=== PATIENT | male | born 1985 ===

== ENCOUNTER 2022-10-23 13:43 | Inpatient (IN) ==
[2022-10-23] MEDS ORDERED: ONDANSETRON 4 MG/2 ML VIAL IV STA (14:53)
[2022-10-23] MEDS ORDERED: MORPHINE 2 MG/1 ML SYRINGE IV STA (14:53)
[2022-10-23] MEDS ORDERED: cefTRIAXone 1,000 MG in SODIUM CHLORIDE 0.9% 100 ML IV STA (14:53)
[2022-10-23] MEDS ORDERED: LIDOCAINE 1% 20 ML VIAL INFILTRAT STA (15:06)
[2022-10-23 16:00] LABS: Basophils # 0.1 10*3/uL (0.0-0.2); Basophils % 0.4 % (0.0-0.8); Eosinophils # 0.2 10*3/uL (0.0-0.87); Eosinophils % 0.9 % (0.00-10.9); Hematocrit 37.1 VOL% (42.0-52.0); Hemoglobin 12.5 GM/DL (14.0-18.0); Immature Granulocytes % 1.8 %; Immature Granulocytes Absolute 0.35 #; Lymphocytes # 1.8 10*3/uL (1.4-4.0); Lymphocytes % 9.3 % (21.2-54.2); Mean Corpuscular HGB Conc 33.7 GM/DL (32-36); Mean Corpuscular Volume 99.7 FL (87-102); Mean Platelet Volume 9.7 FL (9.6-12.0); Monocytes # 2.4 10*3/uL (0.11-0.8); Monocytes % 12.7 % (1.7-12.7); Neutrophils % 74.9 % (38.7-73.9); Platelet Count 255 T/CUMM (130-400); Red Blood Count 3.72 MC/CUMM (3.8-5.5); Red Cell Distribution Width 15.9 % (9.3-17.3); White Blood Count 19.2 T/CUMM (4-12)
[2022-10-23 16:11] LABS: INR 1.8; PT Patient Result 19.5 SECS (10.1-12.1); Partial Thromboplastin Time 44.9 SECS (23.7-32.9)
[2022-10-23 16:26] LABS: Glucose,Peritoneal Fluid 81 MG/DL; LDH,Peritoneal Fluid 64 U/L; Total Protein,Peritoneal Fluid < 1.0 G/DL
[2022-10-23 16:59] LABS: Neutrophils,Peritoneal Fluid 27 %
[2022-10-23 17:00] LABS: RBC,Peritoneal Fluid 2236 T/CUMM
[2022-10-23 17:14] LABS: Albumin 1.5 G/DL (3.4-5.0); Bilirubin,Direct 18.59 MG/DL (0.0-0.20); Bilirubin,Indirect 3.5 MG/DL (0.0-1.0); Total Protein 6.5 G/DL (6.4-8.2)
[2022-10-23 17:30] LABS: Bilirubin,Total 22.1 MG/DL (0.20-1.00)
[2022-10-23] MEDS ORDERED: MORPHINE 2 MG/1 ML SYRINGE IV PRN (17:42)
[2022-10-23] MEDS ORDERED: ONDANSETRON 4 MG/2 ML VIAL IV PRN (17:42)
[2022-10-23 17:55] LABS: Bacteria,Urine Occasional /HPF (Few); Mucus,Urine Occasional /LPF (Occasional); Squamous Epithelial Cell,Urine Occasional /HPF (0-10)
[2022-10-23 17:57] LABS: Urine Appearance Clear (Clear)
[2022-10-23 17:58] LABS: Bilirubin,Urine Large mg/dL (Negative); Blood, Urine Trace mg/dL (Negative); Glucose,Urine (UA) 100 mg/dL (Negative); Ketones,Urine 15 mg/dL (Negative); Nitrite,Urine Negative (Negative); Protein,Urine 100 mg/dL (Negative); Urine Specific Gravity 1.025 (1.001-1.035)
[2022-10-23 17:59] LABS: Urine Color Brown (Yellow)
[2022-10-23 18:13] LABS: Thyroid Stimulating Hormone 1.23 uIU/ml (0.358-3.74)
[2022-10-23 18:47] LABS: Hepatitis B Core IgM Quant 0.07 Index; Hepatitis B Surface Ag Quant < 0.10 Index; Hepatitis B Surface Ag Result Non-Reactive (NonReactive); Hepatitis C Virus Ab Quant 0.06 Index; Hepatitis C Virus Ab Result Non-Reactive (NonReactive)
[2022-10-23] MEDS ORDERED: hydrALAZINE 20 MG/1 ML VIAL IV PRN (19:39)
[2022-10-23] MEDS ORDERED: LORazepam 2 MG/1 ML VIAL IV PRN (19:39)
[2022-10-23 19:49] LABS: % Iron Saturation 64.8 % (18-50)
[2022-10-23 19:58] LABS: Folate 9.64 NG/ML (5.38-24.0); Vitamin B12 > 2000 PG/ML (211-911)
[2022-10-23] MEDS: INSULIN REGULAR 100 UNIT/ML SUBCUT SCH (21:06)
[2022-10-23] MEDS ORDERED: GLUCAGON 1 MG VIAL IM PRN (21:18)
[2022-10-23] MEDS ORDERED: DEXTROSE 10% 250 ML BAG IV PRN (21:18)
[2022-10-23] MEDS ORDERED: DEXTROSE 50% 25 GM/50 ML SYRINGE IV PRN ×2 (21:23→21:44)
[2022-10-23] MEDS: DEXTROSE 50% 25 GM/50 ML SYRINGE IV PRN ×2 (21:30→21:34)
[2022-10-23] MEDS ORDERED: DEXTROSE 50% 25 GM/50 ML SYRINGE IV ONE (21:30)
[2022-10-24 04:19] LABS: Basophils # 0.1 10*3/uL (0.0-0.2); Basophils % 0.5 % (0.0-0.8); Eosinophils # 0.3 10*3/uL (0.0-0.87); Eosinophils % 1.3 % (0.00-10.9); Hematocrit 39.5 VOL% (42.0-52.0); Hemoglobin 13.6 GM/DL (14.0-18.0); Immature Granulocytes % 1.9 %; Immature Granulocytes Absolute 0.39 #; Lymphocytes # 2.2 10*3/uL (1.4-4.0); Mean Corpuscular HGB Conc 34.4 GM/DL (32-36); Mean Corpuscular Volume 98.3 FL (87-102); Mean Platelet Volume 10.3 FL (9.6-12.0); Monocytes # 2.8 10*3/uL (0.11-0.8); Monocytes % 13.5 % (1.7-12.7); Neutrophils % 71.8 % (38.7-73.9); Platelet Count 322 T/CUMM (130-400); Red Blood Count 4.02 MC/CUMM (3.8-5.5); Red Cell Distribution Width 15.9 % (9.3-17.3); White Blood Count 20.4 T/CUMM (4-12)
[2022-10-24 04:40] LABS: Albumin 1.6 G/DL (3.4-5.0); Osmolality,Calculated 267.5 MOS/KG (273-304); Potassium 3.9 MMOL/L (3.5-5.1); Risk Ratio 10.62; Total Protein 6.6 G/DL (6.4-8.2); VLDL Cholesterol 75.4 MG/DL
[2022-10-24 04:42] LABS: Bilirubin,Total 24.6 MG/DL (0.20-1.00)
[2022-10-24 04:52] LABS: Band Neutrophils 2 % (0-10); Eosinophils 2 % (0-10); Lymphocytes 10 % (20-55); Metamyelocytes 1 %; Total Cells Counted 100
[2022-10-24 04:53] LABS: Macrocytosis Slight
[2022-10-24] MEDS ORDERED: DEXTROSE 10% 1,000 ML IV SCH (08:30)
[2022-10-24] MEDS ORDERED: cefTRIAXone 1,000 MG in SODIUM CHLORIDE 0.9% 100 ML IV SCH (09:00)
[2022-10-24] MEDS ORDERED: DEXTROSE 10% 250 ML IV SCH (09:00)
[2022-10-24] MEDS: INSULIN REGULAR 100 UNIT/ML SUBCUT SCH ×4 (10:02→20:05)
[2022-10-24] MEDS: MULTIVITAMIN (CENTRUM) TABLET PO SCH (10:28)
[2022-10-24] MEDS: FOLIC ACID 1 MG TABLET PO SCH (10:29)
[2022-10-24] MEDS: PANTOPRAZOLE 40 MG TABLET PO SCH (10:29)
[2022-10-24] MEDS: THIAMINE 100 MG TABLET PO SCH (10:29)
[2022-10-24] MEDS: DEXTROSE 10% 500 ML IV SCH ×3 (11:22→22:15)
[2022-10-25] MEDS: DEXTROSE 10% 500 ML IV SCH ×4 (03:00→14:41)
[2022-10-25 05:08] LABS: Basophils # 0.1 10*3/uL (0.0-0.2); Basophils % 0.6 % (0.0-0.8); Eosinophils # 0.2 10*3/uL (0.0-0.87); Eosinophils % 1.6 % (0.00-10.9); Hematocrit 32.2 VOL% (42.0-52.0); Hemoglobin 11.1 GM/DL (14.0-18.0); Immature Granulocytes % 1.9 %; Immature Granulocytes Absolute 0.25 #; Lymphocytes # 1.4 10*3/uL (1.4-4.0); Lymphocytes % 10.7 % (21.2-54.2); Mean Corpuscular HGB Conc 34.5 GM/DL (32-36); Mean Corpuscular Volume 98.8 FL (87-102); Mean Platelet Volume 9.5 FL (9.6-12.0); Monocytes # 2.2 10*3/uL (0.11-0.8); Monocytes % 16.2 % (1.7-12.7); Platelet Count 169 T/CUMM (130-400); Red Blood Count 3.26 MC/CUMM (3.8-5.5); Red Cell Distribution Width 15.3 % (9.3-17.3); White Blood Count 13.4 T/CUMM (4-12)
[2022-10-25 05:33] LABS: Albumin 1.2 G/DL (3.4-5.0); Calcium 7.4 MG/DL (8.5-10.1); Osmolality,Calculated 267.1 MOS/KG (273-304); Potassium 3.5 MMOL/L (3.5-5.1); Total Protein 5.2 G/DL (6.4-8.2)
[2022-10-25 05:35] LABS: Bilirubin,Total 19.2 MG/DL (0.20-1.00)
[2022-10-25 05:50] LABS: Band Neutrophils 17 % (0-10); Lymphocytes 9 % (20-55); Nucleated Red Blood Cells 1 /100 WBC (0-5); Platelet Estimate Normal; Total Cells Counted 100
[2022-10-25 05:51] LABS: Anisocytosis 1+; Burr Cells 1+; Macrocytosis Slight
[2022-10-25] MEDS: INSULIN REGULAR 100 UNIT/ML SUBCUT SCH ×4 (07:46→20:30)
[2022-10-25] MEDS: MULTIVITAMIN (CENTRUM) TABLET PO SCH (08:43)
[2022-10-25] MEDS: FOLIC ACID 1 MG TABLET PO SCH (08:43)
[2022-10-25] MEDS: PANTOPRAZOLE 40 MG TABLET PO SCH (08:43)
[2022-10-25] MEDS: THIAMINE 100 MG TABLET PO SCH (08:43)
[2022-10-25] MEDS: cefTRIAXone 2,000 MG in SODIUM CHLORIDE 0.9% 100 ML IV SCH (08:45)
[2022-10-25] MEDS ORDERED: LACTULOSE 20 GM/30 ML UDCUP PO PRN (08:58)
[2022-10-25] MEDS: SPIRONOLACTONE 50 MG TABLET PO SCH ×2 (10:51→20:30)
[2022-10-25] MEDS: FUROSEMIDE 40 MG/4 ML VIAL IV SCH (10:53)
[2022-10-25] MEDS: SODIUM CHLORIDE 0.9% 1,000 ML IV SCH (15:29)
[2022-10-25] MEDS: LACTULOSE 20 GM/30 ML UDCUP PO SCH (20:30)
[2022-10-26 05:26] LABS: Basophils # 0.1 10*3/uL (0.0-0.2); Basophils % 0.5 % (0.0-0.8); Eosinophils # 0.2 10*3/uL (0.0-0.87); Hematocrit 35.1 VOL% (42.0-52.0); Hemoglobin 12.3 GM/DL (14.0-18.0); Immature Granulocytes % 1.6 %; Immature Granulocytes Absolute 0.25 #; Lymphocytes # 1.4 10*3/uL (1.4-4.0); Lymphocytes % 8.8 % (21.2-54.2); Mean Corpuscular Volume 97.2 FL (87-102); Mean Platelet Volume 9.6 FL (9.6-12.0); Monocytes # 2.5 10*3/uL (0.11-0.8); Monocytes % 16.1 % (1.7-12.7); Platelet Count 217 T/CUMM (130-400); Red Blood Count 3.61 MC/CUMM (3.8-5.5); White Blood Count 15.4 T/CUMM (4-12)
[2022-10-26 05:40] LABS: Albumin 1.3 G/DL (3.4-5.0); Calcium 8.3 MG/DL (8.5-10.1); Osmolality,Calculated 271.5 MOS/KG (273-304); Potassium 3.3 MMOL/L (3.5-5.1); Total Protein 5.9 G/DL (6.4-8.2)
[2022-10-26 05:42] LABS: Bilirubin,Total 23.2 MG/DL (0.20-1.00)
[2022-10-26 06:28] LABS: Band Neutrophils 11 % (0-10); Eosinophils 2 % (0-10); Lymphocytes 8 % (20-55); Platelet Estimate Normal; Total Cells Counted 100
[2022-10-26 06:29] LABS: Anisocytosis 1+; Burr Cells Few; Macrocytosis 1+
[2022-10-26] MEDS: INSULIN REGULAR 100 UNIT/ML SUBCUT SCH ×4 (07:33→20:42)
[2022-10-26] MEDS ORDERED: propofoL 200 MG/20 ML VIAL IV ONE ×2 (10:18→10:26)
[2022-10-26] MEDS ORDERED: LIDOCAINE 2% 5 ML VIAL ONE (10:18)
[2022-10-26] MEDS ORDERED: FLUCONAZOLE 200 MG TABLET PO ONE (10:45)
[2022-10-26] MEDS: LACTATED RINGERS 1,000 ML IV SCH (10:47)
[2022-10-26] MEDS: MULTIVITAMIN (CENTRUM) TABLET PO SCH (12:10)
[2022-10-26] MEDS: FOLIC ACID 1 MG TABLET PO SCH (12:10)
[2022-10-26] MEDS: PANTOPRAZOLE 40 MG TABLET PO SCH (12:11)
[2022-10-26] MEDS: SPIRONOLACTONE 50 MG TABLET PO SCH ×2 (12:11→20:41)
[2022-10-26] MEDS: LACTULOSE 20 GM/30 ML UDCUP PO SCH ×2 (12:12→20:41)
[2022-10-26] MEDS: THIAMINE 100 MG TABLET PO SCH (12:45)
[2022-10-26] MEDS: cefTRIAXone 2,000 MG in SODIUM CHLORIDE 0.9% 100 ML IV SCH (14:11)
[2022-10-26] MEDS: FUROSEMIDE 40 MG/4 ML VIAL IV SCH (14:11)
[2022-10-27 04:42] LABS: Basophils # 0.1 10*3/uL (0.0-0.2); Basophils % 0.5 % (0.0-0.8); Eosinophils # 0.1 10*3/uL (0.0-0.87); Hemoglobin 11.2 GM/DL (14.0-18.0); Immature Granulocytes % 0.8 %; Immature Granulocytes Absolute 0.11 #; Lymphocytes # 1.3 10*3/uL (1.4-4.0); Lymphocytes % 9.9 % (21.2-54.2); Mean Corpuscular Volume 97.9 FL (87-102); Mean Platelet Volume 9.3 FL (9.6-12.0); Monocytes # 2.2 10*3/uL (0.11-0.8); Monocytes % 16.1 % (1.7-12.7); Neutrophils % 71.7 % (38.7-73.9); Platelet Count 173 T/CUMM (130-400); Red Blood Count 3.27 MC/CUMM (3.8-5.5); Red Cell Distribution Width 15.2 % (9.3-17.3); White Blood Count 13.5 T/CUMM (4-12)
[2022-10-27 05:05] LABS: Albumin 1.2 G/DL (3.4-5.0); Calcium 8.1 MG/DL (8.5-10.1); Osmolality,Calculated 276.2 MOS/KG (273-304); Potassium 3.3 MMOL/L (3.5-5.1); Total Protein 5.3 G/DL (6.4-8.2)
[2022-10-27 05:06] LABS: Band Neutrophils 1 % (0-10); Eosinophils 1 % (0-10); Lymphocytes 9 % (20-55); Total Cells Counted 100
[2022-10-27 05:07] LABS: Platelet Estimate Normal
[2022-10-27 05:20] LABS: Bilirubin,Total 20.6 MG/DL (0.20-1.00)
[2022-10-27] MEDS: SODIUM CHLORIDE 0.9% 1,000 ML IV SCH (05:28)
[2022-10-27] MEDS: PANTOPRAZOLE 40 MG TABLET PO SCH (09:49)
[2022-10-27] MEDS: MULTIVITAMIN (CENTRUM) TABLET PO SCH (09:50)
[2022-10-27] MEDS: SPIRONOLACTONE 50 MG TABLET PO SCH ×2 (09:50→22:01)
[2022-10-27] MEDS: FOLIC ACID 1 MG TABLET PO SCH (09:50)
[2022-10-27] MEDS: LACTULOSE 20 GM/30 ML UDCUP PO SCH ×2 (09:50→22:01)
[2022-10-27] MEDS: THIAMINE 100 MG TABLET PO SCH (09:50)
[2022-10-27] MEDS: FLUCONAZOLE 100 MG TABLET PO SCH (09:50)
[2022-10-27] MEDS: FUROSEMIDE 40 MG/4 ML VIAL IV SCH (09:51)
[2022-10-27] MEDS: INSULIN REGULAR 100 UNIT/ML SUBCUT SCH ×4 (09:52→22:03)
[2022-10-27] MEDS: RIFAXIMIN 550 MG TABLET PO SCH ×2 (09:55→22:01)
[2022-10-27] MEDS: cefTRIAXone 2,000 MG in SODIUM CHLORIDE 0.9% 100 ML IV SCH (11:18)
[2022-10-28] MEDS: SODIUM CHLORIDE 0.9% 1,000 ML IV SCH (02:02)
[2022-10-28] MEDS: INSULIN REGULAR 100 UNIT/ML SUBCUT SCH ×2 (08:34→11:46)
[2022-10-28] MEDS ORDERED: FUROSEMIDE 40 MG TABLET PO SCH (09:00)
[2022-10-28 09:22] LABS: Basophils # 0.1 10*3/uL (0.0-0.2); Basophils % 0.7 % (0.0-0.8); Eosinophils # 0.2 10*3/uL (0.0-0.87); Eosinophils % 1.2 % (0.00-10.9); Hematocrit 35.6 VOL% (42.0-52.0); Hemoglobin 12.3 GM/DL (14.0-18.0); Immature Granulocytes % 1.1 %; Immature Granulocytes Absolute 0.16 #; Lymphocytes # 1.3 10*3/uL (1.4-4.0); Lymphocytes % 9.1 % (21.2-54.2); Mean Corpuscular HGB Conc 34.6 GM/DL (32-36); Mean Platelet Volume 9.4 FL (9.6-12.0); Monocytes # 2.2 10*3/uL (0.11-0.8); Monocytes % 15.7 % (1.7-12.7); Neutrophils % 72.2 % (38.7-73.9); Platelet Count 176 T/CUMM (130-400); Red Blood Count 3.67 MC/CUMM (3.8-5.5); Red Cell Distribution Width 15.1 % (9.3-17.3); White Blood Count 13.92 T/CUMM (4-12)
[2022-10-28] MEDS: FOLIC ACID 1 MG TABLET PO SCH (09:25)
[2022-10-28] MEDS: PANTOPRAZOLE 40 MG TABLET PO SCH (09:25)
[2022-10-28] MEDS: RIFAXIMIN 550 MG TABLET PO SCH (09:25)
[2022-10-28] MEDS: SPIRONOLACTONE 50 MG TABLET PO SCH (09:25)
[2022-10-28] MEDS: LACTULOSE 20 GM/30 ML UDCUP PO SCH (09:25)
[2022-10-28] MEDS: MULTIVITAMIN (CENTRUM) TABLET PO SCH (09:25)
[2022-10-28] MEDS: FLUCONAZOLE 100 MG TABLET PO SCH (09:25)
[2022-10-28] MEDS: THIAMINE 100 MG TABLET PO SCH (09:25)
[2022-10-28] MEDS: LACTATED RINGERS 1,000 ML IV SCH (09:27)
[2022-10-28 09:43] LABS: Band Neutrophils 2 % (0-10); Eosinophils 2 % (0-10); Lymphocytes 7 % (20-55); Platelet Estimate Adequate; Total Cells Counted 100
[2022-10-28 09:46] LABS: Albumin 1.4 G/DL (3.4-5.0); Calcium 7.8 MG/DL (8.5-10.1); Osmolality,Calculated 275.2 MOS/KG (273-304); Potassium 3.6 MMOL/L (3.5-5.1)
[2022-10-28 09:50] LABS: Bilirubin,Total 22.1 MG/DL (0.20-1.00)
[2022-10-28] MEDS: cefTRIAXone 2,000 MG in SODIUM CHLORIDE 0.9% 100 ML IV SCH (11:45)
[2022-10-28 12:16] VITALS: BP 137/68
== END 2022-10-28 13:56 | disposition home or self-care (01) | DRG 433 ==
LOC: EDBD → N.ED 13:43 → N.EDINP 17:38 → N.3E 10-24 08:50
PROVIDERS: ADMIT Emergency Medicine; ATTEND Emergency Medicine

== ENCOUNTER 2022-11-15 05:34 | Inpatient (IN) ==
[2022-11-15] MEDS ORDERED: ONDANSETRON 4 MG/2 ML VIAL IV STA (06:02)
[2022-11-15] MEDS ORDERED: THIAMINE INJ 100 MG, FOLIC ACID INJ 1 MG, MAGNESIUM SULF INJ 2 GM, MULTIVITAMIN INJ 10 ... IV ONE (06:03)
[2022-11-15] MEDS ORDERED: PIPERACILLIN/TAZOBACTAM 3,375 MG in SODIUM CHLORIDE 0.9% 100 ML IV STA (06:04)
[2022-11-15 06:45] LABS: Basophils # 0.2 10*3/uL (0.0-0.2); Basophils % 0.9 % (0.0-0.8); Eosinophils # 0.5 10*3/uL (0.0-0.87); Eosinophils % 1.9 % (0.00-10.9); Hematocrit 25.3 VOL% (42.0-52.0); Hemoglobin 8.9 GM/DL (14.0-18.0); Immature Granulocytes % 2.7 %; Immature Granulocytes Absolute 0.63 #; Lymphocytes # 2.1 10*3/uL (1.4-4.0); Lymphocytes % 8.7 % (21.2-54.2); Mean Corpuscular HGB Conc 35.2 GM/DL (32-36); Mean Platelet Volume 9.8 FL (9.6-12.0); Monocytes # 3.5 10*3/uL (0.11-0.8); Monocytes % 14.9 % (1.7-12.7); Neutrophils % 70.9 % (38.7-73.9); Platelet Count 250 T/CUMM (130-400); Red Blood Count 2.75 MC/CUMM (3.8-5.5); Red Cell Distribution Width 14.7 % (9.3-17.3); White Blood Count 23.66 T/CUMM (4-12)
[2022-11-15 06:54] LABS: INR 1.8; PT Patient Result 19.2 SECS (10.1-12.1); Partial Thromboplastin Time 56.4 SECS (23.7-32.9)
[2022-11-15 07:20] LABS: Alanine Aminotransferase 61 U/L (16-61); Albumin 1.5 G/DL (3.4-5.0); Alkaline Phosphatase 271 U/L (45-117); Aspartate Amino Transferase 115 U/L (0-37); Blood Urea Nitrogen 41 MG/DL (7-18); Calcium 8.2 MG/DL (8.5-10.1); Carbon Dioxide 15 MMOL/L (21-32); Chloride 103 MMOL/L (98-107); Glucose 288 MG/DL (74-106); Osmolality,Calculated 278.9 MOS/KG (273-304); Potassium 3.1 MMOL/L (3.5-5.1); Sodium 129 MMOL/L (136-145); Total Protein 5.8 G/DL (6.4-8.2)
[2022-11-15 07:29] LABS: Eosinophils 4 % (0-10); Lymphocytes 8 % (20-55); Platelet Estimate Adequate; Total Cells Counted 100
[2022-11-15] MEDS ORDERED: SODIUM CHLORIDE 0.9% 1,000 ML IV STA (07:37)
[2022-11-15] MEDS ORDERED: ONDANSETRON 4 MG/2 ML VIAL IV PRN (08:05)
[2022-11-15] MEDS ORDERED: GLUCAGON 1 MG VIAL IM PRN (08:13)
[2022-11-15] MEDS ORDERED: DEXTROSE 10% 250 ML BAG IV PRN (08:24)
[2022-11-15] MEDS ORDERED: FLUCONAZOLE 100 MG TABLET PO SCH (09:00)
[2022-11-15] MEDS: SPIRONOLACTONE 50 MG TABLET PO SCH ×2 (09:35→21:57)
[2022-11-15] MEDS: RIFAXIMIN 550 MG TABLET PO SCH ×2 (09:36→21:57)
[2022-11-15] MEDS: LACTULOSE 20 GM/30 ML UDCUP PO SCH ×2 (09:36→21:56)
[2022-11-15] MEDS: FUROSEMIDE 40 MG TABLET PO SCH (09:36)
[2022-11-15] MEDS: PANTOPRAZOLE 40 MG TABLET PO SCH (09:36)
[2022-11-15] MEDS: POTASSIUM CHLORIDE INJ 10 MEQ in SODIUM CHLORIDE 0.9% 1,000 ML IV SCH ×2 (09:37→18:28)
[2022-11-15 10:00] LABS: Hematocrit 27.3 VOL% (42.0-52.0); Hemoglobin 9.8 GM/DL (14.0-18.0)
[2022-11-15 11:58] LABS: Mucus,Urine Occasional /LPF (Occasional); Protein,Urine Trace mg/dL (Negative); Squamous Epithelial Cell,Urine Occasional /HPF (0-10); Urine Appearance Clear (Clear); Urine Color Dark Yellow (Yellow); Urine pH 5.5 (4.5-8.0)
[2022-11-15 11:59] LABS: Bilirubin,Urine Large mg/dL (Negative); Blood, Urine Negative (Negative); Glucose,Urine (UA) 500 mg/dL (Negative); Ketones,Urine Negative (Negative); Nitrite,Urine Negative (Negative); Urine Urobilinogen 0.2 eU/dL (<2.0)
[2022-11-15 12:15] LABS: Barbiturates Screen,Urine Negative (Negative); Benzodiazepines Screen,Urine Negative (Negative); Cannabinoid Screen,Urine Negative (Negative); Opiate Screen,Urine Negative (Negative); Phencyclidine Screen,Urine Negative (Negative)
[2022-11-15] MEDS: INSULIN LISPRO 100 UNIT/ML SUBCUT SCH ×3 (13:25→21:56)
[2022-11-15] MEDS ORDERED: TISSUE ADHESIVE 1 EACH APPLICATOR TOP ONE (14:17)
[2022-11-15] MEDS: PIPERACILLIN/TAZOBACTAM 3,375 MG in SODIUM CHLORIDE 0.9% 100 ML IV SCH ×2 (14:46→21:56)
[2022-11-15 15:31] LABS: Neutrophils,Peritoneal Fluid 37 %
[2022-11-15 15:33] LABS: RBC,Peritoneal Fluid 60 T/CUMM
[2022-11-15 16:58] LABS: Hematocrit 30.2 VOL% (42.0-52.0); Hemoglobin 10.8 GM/DL (14.0-18.0)
[2022-11-15] MEDS ORDERED: ALBUMIN 5% 25 GM/500 ML VIAL IV SCH (18:00)
[2022-11-15] MEDS: ALBUMIN 5% 25 GM/500 ML VIAL IV SCH (22:13)
[2022-11-16 01:49] LABS: Hematocrit 24.2 VOL% (42.0-52.0); Hemoglobin 8.7 GM/DL (14.0-18.0)
[2022-11-16] MEDS: POTASSIUM CHLORIDE INJ 10 MEQ in SODIUM CHLORIDE 0.9% 1,000 ML IV SCH ×2 (03:30→06:05)
[2022-11-16 05:50] LABS: Basophils # 0.2 10*3/uL (0.0-0.2); Basophils % 0.9 % (0.0-0.8); Eosinophils # 0.4 10*3/uL (0.0-0.87); Eosinophils % 2.5 % (0.00-10.9); Hemoglobin 8.7 GM/DL (14.0-18.0); Immature Granulocytes % 1.3 %; Immature Granulocytes Absolute 0.22 #; Lymphocytes # 1.6 10*3/uL (1.4-4.0); Lymphocytes % 9.6 % (21.2-54.2); Mean Corpuscular HGB Conc 36.3 GM/DL (32-36); Mean Corpuscular Volume 91.3 FL (87-102); Monocytes # 2.1 10*3/uL (0.11-0.8); Monocytes % 12.5 % (1.7-12.7); Neutrophils % 73.2 % (38.7-73.9); Platelet Count 178 T/CUMM (130-400); Red Blood Count 2.63 MC/CUMM (3.8-5.5); Red Cell Distribution Width 14.6 % (9.3-17.3); White Blood Count 16.71 T/CUMM (4-12)
[2022-11-16] MEDS: PIPERACILLIN/TAZOBACTAM 3,375 MG in SODIUM CHLORIDE 0.9% 100 ML IV SCH ×2 (06:03→17:20)
[2022-11-16] MEDS: ALBUMIN 5% 25 GM/500 ML VIAL IV SCH ×3 (06:04→20:20)
[2022-11-16 06:12] LABS: INR 1.8; PT Patient Result 19.4 SECS (10.1-12.1)
[2022-11-16 06:29] LABS: Albumin 1.6 G/DL (3.4-5.0); Osmolality,Calculated 277.4 MOS/KG (273-304); Potassium 2.6 MMOL/L (3.5-5.1); Total Protein 5.3 G/DL (6.4-8.2)
[2022-11-16 06:31] LABS: Bilirubin,Total 22.7 MG/DL (0.20-1.00)
[2022-11-16] MEDS: INSULIN LISPRO 100 UNIT/ML SUBCUT SCH ×4 (07:53→20:38)
[2022-11-16 08:06] LABS: Hematocrit 22.4 VOL% (42.0-52.0); Hemoglobin 8.3 GM/DL (14.0-18.0)
[2022-11-16] MEDS: SPIRONOLACTONE 50 MG TABLET PO SCH ×2 (10:56→20:20)
[2022-11-16] MEDS: SODIUM CHLOR 0.9% KCL 40 MEQ 40 MEQ/1,000 ML BAG IV SCH (10:56)
[2022-11-16] MEDS: LACTULOSE 20 GM/30 ML UDCUP PO SCH ×2 (10:56→20:20)
[2022-11-16] MEDS: PANTOPRAZOLE 40 MG TABLET PO SCH (10:56)
[2022-11-16] MEDS: FUROSEMIDE 40 MG TABLET PO SCH (10:56)
[2022-11-16] MEDS: RIFAXIMIN 550 MG TABLET PO SCH ×2 (10:56→20:20)
[2022-11-17] MEDS: SODIUM CHLOR 0.9% KCL 40 MEQ 40 MEQ/1,000 ML BAG IV SCH (02:02)
[2022-11-17] MEDS: PIPERACILLIN/TAZOBACTAM 3,375 MG in SODIUM CHLORIDE 0.9% 100 ML IV SCH (04:56)
[2022-11-17 05:19] LABS: Basophils # 0.2 10*3/uL (0.0-0.2); Eosinophils # 0.4 10*3/uL (0.0-0.87); Eosinophils % 2.5 % (0.00-10.9); Hematocrit 23.8 VOL% (42.0-52.0); Hemoglobin 8.3 GM/DL (14.0-18.0); Immature Granulocytes % 0.9 %; Immature Granulocytes Absolute 0.13 #; Lymphocytes # 1.7 10*3/uL (1.4-4.0); Lymphocytes % 11.1 % (21.2-54.2); Mean Corpuscular HGB Conc 34.9 GM/DL (32-36); Mean Corpuscular Volume 91.9 FL (87-102); Mean Platelet Volume 9.9 FL (9.6-12.0); Monocytes # 1.9 10*3/uL (0.11-0.8); Monocytes % 12.7 % (1.7-12.7); Neutrophils % 71.8 % (38.7-73.9); Platelet Count 173 T/CUMM (130-400); Red Blood Count 2.59 MC/CUMM (3.8-5.5); Red Cell Distribution Width 14.8 % (9.3-17.3); White Blood Count 14.92 T/CUMM (4-12)
[2022-11-17] MEDS: ALBUMIN 5% 25 GM/500 ML VIAL IV SCH ×3 (05:35→21:57)
[2022-11-17 05:43] LABS: INR 1.9
[2022-11-17 06:03] LABS: Albumin 2.2 G/DL (3.4-5.0); Osmolality,Calculated 279.5 MOS/KG (273-304); Potassium 2.7 MMOL/L (3.5-5.1); Total Protein 4.9 G/DL (6.4-8.2)
[2022-11-17 06:08] LABS: Bilirubin,Total 22.6 MG/DL (0.20-1.00)
[2022-11-17] MEDS: cefTRIAXone 1,000 MG in SODIUM CHLORIDE 0.9% 100 ML IV SCH (09:03)
[2022-11-17] MEDS: INSULIN LISPRO 100 UNIT/ML SUBCUT SCH ×4 (09:08→21:16)
[2022-11-17] MEDS: PANTOPRAZOLE 40 MG TABLET PO SCH (09:09)
[2022-11-17] MEDS: LACTULOSE 20 GM/30 ML UDCUP PO SCH ×2 (09:09→21:15)
[2022-11-17] MEDS: RIFAXIMIN 550 MG TABLET PO SCH ×2 (09:09→21:15)
[2022-11-17] MEDS ORDERED: POTASSIUM CHLORIDE 20 MEQ TABLET PO ONE (09:21)
[2022-11-17] MEDS ORDERED: CAMPHOR/MENTHOL LOTION 222 ML BOTTLE TOP PRN (10:56)
[2022-11-17] MEDS: CHOLESTYRAMINE 4 GM PACK PO SCH ×2 (11:35→22:13)
[2022-11-18] MEDS: ALBUMIN 5% 25 GM/500 ML VIAL IV SCH ×3 (04:43→21:41)
[2022-11-18 05:12] LABS: Basophils # 0.2 10*3/uL (0.0-0.2); Basophils % 1.2 % (0.0-0.8); Eosinophils # 0.4 10*3/uL (0.0-0.87); Eosinophils % 3.1 % (0.00-10.9); Hemoglobin 8.3 GM/DL (14.0-18.0); Immature Granulocytes % 0.9 %; Immature Granulocytes Absolute 0.12 #; Lymphocytes # 1.4 10*3/uL (1.4-4.0); Lymphocytes % 10.6 % (21.2-54.2); Mean Corpuscular HGB Conc 36.1 GM/DL (32-36); Mean Corpuscular Volume 92.4 FL (87-102); Mean Platelet Volume 10.2 FL (9.6-12.0); Monocytes # 1.6 10*3/uL (0.11-0.8); Monocytes % 12.7 % (1.7-12.7); Neutrophils % 71.5 % (38.7-73.9); Platelet Count 156 T/CUMM (130-400); Red Blood Count 2.49 MC/CUMM (3.8-5.5); Red Cell Distribution Width 14.9 % (9.3-17.3); White Blood Count 12.87 T/CUMM (4-12)
[2022-11-18 05:20] LABS: PT Patient Result 20.9 SECS (10.1-12.1)
[2022-11-18 05:36] LABS: Albumin 2.7 G/DL (3.4-5.0); Calcium 7.9 MG/DL (8.5-10.1); Osmolality,Calculated 285.1 MOS/KG (273-304); Total Protein 5.2 G/DL (6.4-8.2)
[2022-11-18 05:41] LABS: Bilirubin,Total 24.1 MG/DL (0.20-1.00)
[2022-11-18] MEDS: SODIUM CHLOR 0.9% KCL 40 MEQ 40 MEQ/1,000 ML BAG IV SCH ×2 (06:18→21:06)
[2022-11-18] MEDS ORDERED: POTASSIUM CHLORIDE 20 MEQ TABLET PO ONE (08:48)
[2022-11-18] MEDS: CHOLESTYRAMINE 4 GM PACK PO SCH ×2 (09:12→21:06)
[2022-11-18] MEDS: LACTULOSE 20 GM/30 ML UDCUP PO SCH ×2 (09:12→21:06)
[2022-11-18] MEDS: cefTRIAXone 1,000 MG in SODIUM CHLORIDE 0.9% 100 ML IV SCH (09:12)
[2022-11-18] MEDS: PANTOPRAZOLE 40 MG TABLET PO SCH ×2 (09:13→21:06)
[2022-11-18] MEDS: RIFAXIMIN 550 MG TABLET PO SCH ×2 (09:13→21:06)
[2022-11-18] MEDS: INSULIN LISPRO 100 UNIT/ML SUBCUT SCH ×4 (09:13→21:06)
[2022-11-18] MEDS ORDERED: LOPERAMIDE 2 MG CAPSULE PO ONE (12:12)
[2022-11-19] MEDS: hydrOXYzine HCL 25 MG TABLET PO PRN ×2 (03:16→11:01)
[2022-11-19] MEDS: ALBUMIN 5% 25 GM/500 ML VIAL IV SCH ×3 (05:32→21:47)
[2022-11-19 06:44] LABS: Basophils # 0.1 10*3/uL (0.0-0.2); Eosinophils # 0.4 10*3/uL (0.0-0.87); Eosinophils % 3.1 % (0.00-10.9); Hemoglobin 7.5 GM/DL (14.0-18.0); Immature Granulocytes % 0.7 %; Immature Granulocytes Absolute 0.09 #; Lymphocytes # 1.3 10*3/uL (1.4-4.0); Lymphocytes % 10.7 % (21.2-54.2); Mean Corpuscular HGB Conc 35.7 GM/DL (32-36); Mean Corpuscular Volume 93.8 FL (87-102); Mean Platelet Volume 10.3 FL (9.6-12.0); Monocytes # 1.6 10*3/uL (0.11-0.8); Monocytes % 13.1 % (1.7-12.7); Neutrophils % 71.4 % (38.7-73.9); Platelet Count 149 T/CUMM (130-400); Red Blood Count 2.24 MC/CUMM (3.8-5.5); White Blood Count 12.48 T/CUMM (4-12)
[2022-11-19] MEDS: INSULIN LISPRO 100 UNIT/ML SUBCUT SCH ×4 (07:47→21:49)
[2022-11-19 07:58] LABS: Calcium 8.1 MG/DL (8.5-10.1); Potassium 3.8 MMOL/L (3.5-5.1); Total Protein 5.3 G/DL (6.4-8.2)
[2022-11-19 08:01] LABS: Bilirubin,Total 20.2 MG/DL (0.20-1.00)
[2022-11-19] MEDS ORDERED: SODIUM CHLORIDE 0.9% 1,000 ML IV PRN (09:05)
[2022-11-19] MEDS: LACTULOSE 20 GM/30 ML UDCUP PO SCH ×2 (10:55→21:49)
[2022-11-19] MEDS: CHOLESTYRAMINE 4 GM PACK PO SCH ×2 (10:55→21:50)
[2022-11-19] MEDS: RIFAXIMIN 550 MG TABLET PO SCH ×2 (10:58→21:49)
[2022-11-19] MEDS: PANTOPRAZOLE 40 MG TABLET PO SCH ×2 (10:59→21:49)
[2022-11-19] MEDS: cefTRIAXone 1,000 MG in SODIUM CHLORIDE 0.9% 100 ML IV SCH (11:24)
[2022-11-20 05:38] LABS: Basophils # 0.1 10*3/uL (0.0-0.2); Basophils % 0.9 % (0.0-0.8); Eosinophils # 0.3 10*3/uL (0.0-0.87); Eosinophils % 2.9 % (0.00-10.9); Hematocrit 23.9 VOL% (42.0-52.0); Immature Granulocytes % 0.8 %; Immature Granulocytes Absolute 0.09 #; Lymphocytes # 1.2 10*3/uL (1.4-4.0); Lymphocytes % 10.1 % (21.2-54.2); Mean Corpuscular HGB Conc 33.5 GM/DL (32-36); Mean Platelet Volume 10.2 FL (9.6-12.0); Monocytes # 1.6 10*3/uL (0.11-0.8); Monocytes % 13.6 % (1.7-12.7); Neutrophils % 71.7 % (38.7-73.9); Platelet Count 141 T/CUMM (130-400); Red Blood Count 2.57 MC/CUMM (3.8-5.5); Red Cell Distribution Width 16.2 % (9.3-17.3); White Blood Count 11.51 T/CUMM (4-12)
[2022-11-20] MEDS: ALBUMIN 5% 25 GM/500 ML VIAL IV SCH (05:41)
[2022-11-20 06:05] LABS: Albumin 3.1 G/DL (3.4-5.0); Calcium 8.5 MG/DL (8.5-10.1); Osmolality,Calculated 294.3 MOS/KG (273-304); Potassium 3.6 MMOL/L (3.5-5.1); Total Protein 5.5 G/DL (6.4-8.2)
[2022-11-20 06:10] LABS: Bilirubin,Total 20.5 MG/DL (0.20-1.00)
[2022-11-20] MEDS: RIFAXIMIN 550 MG TABLET PO SCH ×2 (08:34→21:44)
[2022-11-20] MEDS: LACTULOSE 20 GM/30 ML UDCUP PO SCH ×2 (08:34→21:44)
[2022-11-20] MEDS: PANTOPRAZOLE 40 MG TABLET PO SCH ×2 (08:34→21:44)
[2022-11-20] MEDS: INSULIN LISPRO 100 UNIT/ML SUBCUT SCH ×4 (08:35→21:45)
[2022-11-20] MEDS: cefTRIAXone 1,000 MG in SODIUM CHLORIDE 0.9% 100 ML IV SCH (08:38)
[2022-11-20 10:26] LABS: INR 2.1; PT Patient Result 22.4 SECS (10.1-12.1)
[2022-11-20] MEDS: CHOLESTYRAMINE 4 GM PACK PO SCH ×2 (10:30→21:45)
[2022-11-20] MEDS: ALBUMIN 25% 25 GM/100 ML VIAL IV SCH ×2 (14:21→21:48)
[2022-11-21] MEDS: ALBUMIN 25% 25 GM/100 ML VIAL IV SCH (05:22)
[2022-11-21 05:57] LABS: Basophils # 0.1 10*3/uL (0.0-0.2); Basophils % 0.7 % (0.0-0.8); Eosinophils # 0.4 10*3/uL (0.0-0.87); Eosinophils % 3.2 % (0.00-10.9); Hemoglobin 7.4 GM/DL (14.0-18.0); Immature Granulocytes % 0.7 %; Immature Granulocytes Absolute 0.08 #; Lymphocytes # 1.3 10*3/uL (1.4-4.0); Mean Corpuscular HGB Conc 35.2 GM/DL (32-36); Mean Corpuscular Volume 92.1 FL (87-102); Mean Platelet Volume 10.4 FL (9.6-12.0); Monocytes # 1.8 10*3/uL (0.11-0.8); Monocytes % 14.9 % (1.7-12.7); Neutrophils % 69.5 % (38.7-73.9); Platelet Count 120 T/CUMM (130-400); Red Blood Count 2.28 MC/CUMM (3.8-5.5); Red Cell Distribution Width 16.6 % (9.3-17.3); White Blood Count 11.71 T/CUMM (4-12)
[2022-11-21 06:23] LABS: Calcium 8.2 MG/DL (8.5-10.1); Osmolality,Calculated 292.5 MOS/KG (273-304); Potassium 3.6 MMOL/L (3.5-5.1)
[2022-11-21] MEDS: RIFAXIMIN 550 MG TABLET PO SCH (09:32)
[2022-11-21] MEDS: INSULIN LISPRO 100 UNIT/ML SUBCUT SCH ×2 (09:32→12:16)
[2022-11-21] MEDS: LACTULOSE 20 GM/30 ML UDCUP PO SCH (09:32)
[2022-11-21] MEDS: PANTOPRAZOLE 40 MG TABLET PO SCH (09:33)
[2022-11-21] MEDS: cefTRIAXone 1,000 MG in SODIUM CHLORIDE 0.9% 100 ML IV SCH (09:41)
[2022-11-21] MEDS: CHOLESTYRAMINE 4 GM PACK PO SCH (09:42)
[2022-11-21 11:01] VITALS: BP 108/67
== END 2022-11-21 13:59 | disposition home or self-care (01) | DRG 432 ==
LOC: EDBD → EDUNIT# → N.ED 05:34 → N.EDINP 08:05 → SUATTDRO 08:05 → N.EDINP 15:35 → N.3E 16:10
PROVIDERS: ADMIT Internal Medicine; ATTEND Internal Medicine Nephrology